=== PATIENT | male | born 1960 | race Hispanic/Latino ===

== ENCOUNTER → 2018-05-02 | Day surgery (SDC) | payer MEDICARE, OTHER ==
[2018-04-30 11:12] LABS: ANION GAP 14.2 mmol/L (8-16); BLOOD UREA NITROGEN 10 mg/dL (7-26); BUN/CREATININE RATIO 14 (6-25); CALCIUM 9.3 mg/dL (8.4-10.2); CARBON DIOXIDE 27 mmol/L (22-29); CHLORIDE 102 mmol/L (98-107); CREATININE, SERUM 0.73 mg/dL (0.72-1.25); EST GLOMERULAR FILTRATION RATE > 60 ML/MIN (60-); GLUCOSE 187 mg/dL (74-118); POTASSIUM 4.2 mmol/L (3.5-5.1); SODIUM 139 mmol/L (136-145)
== END | disposition home or self-care (01) ==
LOC: OR 09:19
PROVIDERS: ATTEND Specialist
DX: S83.281A Other tear of lateral meniscus, current injury, right knee, initial encounter (principal); S83.241A Other tear of medial meniscus, current injury, right knee, initial encounter; Z01.812 Encounter for preprocedural laboratory examination; Z01.810 Encounter for preprocedural cardiovascular examination
CPT/HCPCS: 36415; 80048; 93005

== ENCOUNTER → 2018-05-30 | Day surgery (SDC) | payer MEDICARE, OTHER ==
[2018-05-28 11:44] LABS: ANION GAP 13.5 mmol/L (8-16); BLOOD UREA NITROGEN 13 mg/dL (7-26); BUN/CREATININE RATIO 19 (6-25); CALCIUM 9.1 mg/dL (8.4-10.2); CARBON DIOXIDE 26 mmol/L (22-29); CHLORIDE 104 mmol/L (98-107); EST GLOMERULAR FILTRATION RATE > 60 ML/MIN (60-); GLUCOSE 221 mg/dL (74-118); POTASSIUM 4.5 mmol/L (3.5-5.1); SODIUM 139 mmol/L (136-145)
[~2018-05-30] MED LIST: ATORVASTATIN CA20 MG PO; BUPIVACAINE 0.5%/EPI 30 ML SDV INJ ONE; CEFAZOLIN SOD 2 GM/D5W 50ML 50 ML IV ONE; DEXAMETHASONE SOD PHOS INJ 4 MG/ML VIAL ONE; FENTANYL CITRATE/PF 100MCG/2 ML INJ ONE; GLIMEPIRIDE2 MG PO; LIDOCAINE HCL 2% LOCAL INJ 5 ML SDV VIAL INJ ONE; LISINOPRIL-HCT1 EAC2 PO; METFORMIN HCL500 MG PO; MIDAZOLAM HCL 2 MG/2 ML VIAL ONE; ONDANSETRON HCL INJ 2 MG/ML VIAL ONE; PROPOFOL IV EMULSION 10 MG/ML 20 ML VIAL ONE; SEVOFLURANE INHAL SOLN 250 ML PEN BTL ONE
--- NOTE | 2018-06-02 12:45 | Operative Report ---
DATE OF PROCEDURE: May 30, 2018 PREOPERATIVE DIAGNOSES 1. Right knee medial meniscus tear. 2. Right knee lateral meniscus tear. 3. Right knee degenerative joint disease of the knee. 4. Anterior cruciate ligament tear. POSTOPERATIVE DIAGNOSES 1. Right knee medial meniscus tear. 2. Right knee lateral meniscus tear. 3. Right knee degenerative joint disease of the knee. 4. Anterior cruciate ligament tear. OPERATIONS/PROCEDURES PERFORMED 1. The patient underwent a right knee exam under anesthesia. 2. Right knee arthroscopy. 3. Right knee partial medial meniscectomy. 4. Right knee partial lateral meniscectomy. 5. A resection of an anterior cruciate ligament stump. 6. Chondroplasty of the patella, trochlea, medial femoral condyle, medial tibial plateau, the lateral femoral condyle, and lateral tibial plateau. MAKEUP ARTIST: None. ANESTHESIA: General endotracheal intubation anesthesia. IV FLUIDS: Per the anesthesia record. BRIEF DESCRIPTION OF THE PATIENT'S OPERATIVE PROCEDURE: Mr. Calderon was taken to the operating room and placed in the supine position on the operating room table. Following induction of general anesthesia, as well as endotracheal intubation, the patient's right lower extremity was examined under anesthesia. He was found to have a mild effusion within the knee joint, as well as evidence of anterior translation when examining the anterior cruciate ligament consistent with an ACL tear. The patient's lower extremity was prepped and draped in a standard surgical fashion. A 2-portal technique was used to provide this patient arthroscopic evaluation of the knee joint. Examination of the suprapatellar pouch, medial and lateral gutters found no evidence of loose bodies. 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 The scope was advanced to the medial compartment, and examination of the medial compartment demonstrated a torn medial meniscus. There was also chondromalacia of the articulating surfaces. A combination of biting forceps and motorized shaver were used to resect the torn portion of the meniscus. Chondroplasties of the medial femoral condyle and medial tibial plateau were performed at this time. Scope was then advanced into intercondylar notch and the anterior cruciate ligament was torn. There was a large ACL stump that was interdigitating between the bones. The ACL stump was excised at this time. Scope was advanced in the lateral compartment. There was a torn and macerated lateral meniscus. There was chondromalacia of the articulating surfaces. A combination of biting forceps and a motorized shaver were used to resect the torn portion of the meniscus. Chondroplasties of the lateral femoral condyle and lateral tibial plateau were performed at this time. The scope was then placed in the suprapatellar pouch and chondroplasties of the patella and trochlea were performed. The knee was then deflated of its sterile normal saline. The portal sites were closed. The knee was injected with 0.5% Marcaine with epinephrine. Sterile dressings were applied. The patient was then awakened and taken to the postanesthesia care unit in stable condition. Job#: [id number] CRISTOBAL
--- OUTSIDE RECORDS SUMMARY | 2018-07-19 01:58 | XMS REPORT | Clinical Summary ---
Author Author [facility] Organization [facility] Address Unknown Phone Unavailable Care Team Providers Care Chief Building Inspector Name Role Phone Radha Mckeon MD PCP Allergies No Known Allergies Current Medications Prescription Sig. Disp. Refills Start End Date Status Date blood glucose Use as directed.. 1 Kit 0 12/31/19 Active meterIndications: DM w/o 14 complication type II polyethylene glycol Add lukewarm drinking 4000 mL 0 06/18/20 Active (GOLYTELY) 236-22.74-6.74 water to the fill hannah (4 15 -5.86 gram oral liters) and shake. Drink solutionIndications: as directed by your Colon polyp doctor.. clotrimazole (LOTRIMIN) 1 Apply 1-2 drops to 30 mL 11 06/18/20 Active % external affected nails 2 times a 15 solutionIndications: day. Use a nail file to Onychomycosis keep nails thin. Treatment may take up to 1 year. ibuprofen (MOTRIN) 800 mg Take 1 tablet by mouth 60 tablet 0 12/18/19 Active tabletIndications: Right every 8 hours as needed 16 knee pain, unspecified for Pain. chronicity glimepiride (AMARYL) 2 mg Take 1 tablet by mouth 90 tablet 1 12/18/19 Active tabletIndications: DM every morning (before 16 (diabetes mellitus), type breakfast). 2, uncontrolled lancets 28 2 times weekly 100 Each 3 12/21/19 Active gaugeIndications: DM 16 (diabetes mellitus), type 2, uncontrolled blood glucose test 2 times weekly. 50 Each 3 12/21/19 Active stripsIndications: DM 16 (diabetes mellitus), type 2, uncontrolled metFORMIN (GLUCOPHAGE) Take 1 tablet by mouth 2 180 tablet 1 12/16/19 Active 500 mg tabletIndications: times daily (with meals). 18 Uncontrolled type 2 diabetes mellitus without complication, without long-term current use of insulin, Essential hypertension lisinopril-hydrochlorothi TOME 1 TABLETA POR LA 90 tablet 1 12/16/19 Active azide (PRINZIDE, BOCA CADA MANANA PARA 18 ZESTORETIC) 10-12.5 mg PRESION ARTERIAL O per tabletIndications: (PRESION SANGUINEA).. Essential hypertension polyethylene glycol Add lukewarm drinking 4000 mL 0 12/16/19 Active (GOLYTELY) 236-22.74-6.74 water to the fill hannah (4 18 -5.86 gram oral liters) and shake. Drink solutionIndications: as directed by your Polyp of colon, doctor.. unspecified part of colon, unspecified type lisinopril-hydrochlorothi TOME 1 TABLETA POR LA 90 tablet 1 12/18/19 12/16/19 Discontin azide (PRINZIDE, BOCA CADA MANANA PARA 16 18 ued ZESTORETIC) 10-12.5 mg PRESION ARTERIAL O per tabletIndications: (PRESION SANGUINEA).. Essential hypertension metFORMIN (GLUCOPHAGE) Take 1 tablet by mouth 2 180 tablet 1 12/18/19 12/16/19 Discontin 500 mg tabletIndications: times daily (with meals). 16 18 ued DM (diabetes mellitus), type 2, uncontrolled, Essential hypertension tropicamide (MYDRIACYL) Instill 1 Drop in each 15 mL 0 12/16/1912/05 0.5 % ophthalmic eye once as needed for up 18 18 solutionIndications: to 1 dose (for poor Uncontrolled type 2 retina scan image). diabetes mellitus without complication, without long-term current use of insulin Active Problems Problem Noted Date Glaucoma suspect of both eyes 10/27/2015 Blepharitis of both eyes 10/27/2015 Nuclear sclerotic cataract of both eyes 10/27/2015 Colon polyp- polyp suggestive of adenomatous change in 200906/18/2015 Onychomycosis 06/18/2015 Pain in joint, ankle and foot 05/26/2015 Type II or unspecified type diabetes mellitus without mention of 05/26/2015 complication, not stated as uncontrolled Old complete ACL tear 09/10/2014 Osteoarthrosis of knee 09/10/2014 Knee pain, right 08/04/2014 Fatty liver 03/19/2010 Overview: mild hepatomegaly also oted on U/S of abdomen Essential hypertension, benign 02/11/2010 positive stool guaiac 01/14/2010 Elevated LFTs 01/14/2010 Impaired fasting glucose 01/14/2010 Elevated antinuclear antibody (KISHORE) level Encounters Date Type Specialty Care Team Description 02/06/2018 Telephone Gastroenterology Yusra Rainne 12/22/2017 Orders Only Family Practice Radha Mckeon MD Abnormal eye finding (Primary Dx) 12/19/2017 Lab Appointment Lab Radha Mckeon MD Preventative health care; Uncontrolled type 2 diabetes mellitus without complication, without long-term current use of insulin; Essential hypertension 12/19/2017 Ancillary Radiology Radha Mckeon MD Osteoarthritis of both Procedure knees, unspecified osteoarthritis type 12/19/2017 Ancillary Ophthalmology Radha Mckeon MD Uncontrolled type 2 Procedure diabetes mellitus without complication, without long-term current use of insulin 12/15/2017 Office Visit Family Practice Radha Mckeon MD Osteoarthritis of both knees, unspecified osteoarthritis type (Primary Dx); Uncontrolled type 2 diabetes mellitus without complication, without long-term current use of insulin; Essential hypertension; Preventative health care; Polyp of colon, unspecified part of colon, unspecified type 12/15/2017 Orders Only Family Practice Radha Mckeon MD Polyp of colon , unspecified part of colon, unspecified type; Osteoarthritis of both knees, unspecified osteoarthritis type 12/15/2017 Pharmacy Visit after 05/29/2017 Immunizations Name Dates Previously Given Next Due Influenza <Unspecified> 08/30/2017 Influenza Vaccine 07/24/2014, 09/28/2013, 08/11/2011, 09/17/2010 Influenza Vaccine, 12/15/2017 (Deferred: Patient Refused) Seasonal, Injectable PPV 23 Pneumococcal 10/16/2013 Polysaccaride TDap (Tetanus Toxoid, 12/15/2017 Reduced Diphtheria Toxoid And Acellular Pertussis, Absorbed) Td Tetanus, diphtheria 05/09/2007 Toxoids Vaccine Family History Medical History Relation Name Comments Arthritis Mother Diabetes Mother Heart Mother Relation Name Status Comments Brother Alive x5 Father ? (Age 46) Mother heart (Age 82) Sister Alive Social History Tobacco Use Types Packs/Day Years Used Date Former Smoker Smokeless Tobacco: Never Used Tobacco Cessation: Counseling Given: No Comments: quit in 1984 Alcohol Use Drinks/Week oz/Week Comments Yes 4 Cans of 2.0 drinks once a month beer Sex Assigned at Date Recorded Not on file Last Filed Vital Signs Vital Sign Reading Time Taken Blood Pressure 125/86 12/15/2017 1:48 PM ENVIRONMENTAL SUSTAINABILITY MANAGER Pulse 96 12/15/2017 1:48 PM ENVIRONMENTAL SUSTAINABILITY MANAGER Temperature 37 C (98.6 F) 12/15/2017 1:48 PM ENVIRONMENTAL SUSTAINABILITY MANAGER Respiratory Rate 18 12/15/2017 1:48 PM ENVIRONMENTAL SUSTAINABILITY MANAGER Oxygen Saturation - - Inhaled Oxygen - - Concentration Weight 110 kg (242 lb 9.6 oz) 12/15/2017 1:48 PM ENVIRONMENTAL SUSTAINABILITY MANAGER Height 172.7 cm (5' 8") 12/15/2017 1:48 PM ENVIRONMENTAL SUSTAINABILITY MANAGER Body Mass Index 36.89 12/15/2017 1:48 PM ENVIRONMENTAL SUSTAINABILITY MANAGER Plan of Treatment Health Maintenance Due Date Last Done Comments DM Foot Exam (Yearly) 1976 Colonoscopy 5yr 03/31/2016 03/31/2011 DM HGBA1C (Yearly) 12/19/2018 12/19/2017, 12/29/2015, 05/26/2015, Additional history exists DM Retinal Exam (Yearly) 12/19/2018 12/19/2017, 10/27/2015, 10/27/2015, Additional history exists Procedures Procedure Name Priority Date/Time Associated Diagnosis Comments OPHTHALMOLOGY RETINAL Routine 12/19/2017 Uncontrolled type 2 Results for this SCAN 2:46 PM ENVIRONMENTAL SUSTAINABILITY MANAGER diabetes mellitus without procedure are in the complication, without results section. long-term current use of insulin HIV-1/HIV-2 ROUTINE Routine 12/19/2017 Preventative health care Results for this SCREENING 1:15 PM ENVIRONMENTAL SUSTAINABILITY MANAGER procedure are in the results section. MICROALBUM, URINE Routine 12/19/2017 Uncontrolled type 2 Results for this 1:15 PM ENVIRONMENTAL SUSTAINABILITY MANAGER diabetes mellitus without procedure are in the complication, without results section. long-term current use of insulin HEMOGLOBIN A1C Routine 12/19/2017 Uncontrolled type 2 Results for this 1:15 PM ENVIRONMENTAL SUSTAINABILITY MANAGER diabetes mellitus without procedure are in the complication, without results section. long-term current use of insulin TSH Routine 12/19/2017 Preventative health care Results for this 1:15 PM ENVIRONMENTAL SUSTAINABILITY MANAGER procedure are in the results section. BASIC METABOLIC PANEL Routine 12/19/2017 Uncontrolled type 2 Results for this 1:15 PM ENVIRONMENTAL SUSTAINABILITY MANAGER diabetes mellitus without procedure are in the complication, without results section. long-term current use of insulin Essential hypertension Preventative health care CBC/DIFF Routine 12/19/2017 Preventative health care Results for this 1:15 PM ENVIRONMENTAL SUSTAINABILITY MANAGER procedure are in the results section. LIPID PROFILE Routine 12/19/2017 Preventative health care Results for this 1:15 PM ENVIRONMENTAL SUSTAINABILITY MANAGER procedure are in the results section. LIVER PROFILE Routine 12/19/2017 Preventative health care Results for this 1:15 PM ENVIRONMENTAL SUSTAINABILITY MANAGER procedure are in the results section. after 05/29/2017 Results * OPHTHALMOLOGY RETINAL SCAN (12/19/2017 2:46 PM) RETINAL SCAN-FINAL RESULT NORMAL IRIS Right Diabetic None IRIS Retinopathy Right Macular Edema None IRIS Right Other Suspected Suspected Glaucoma IRIS Conditions Right Image Quality Gradeable Image IRIS Left Diabetic Retinopathy None IRIS Left Macular Edema None IRIS Left Other Suspected Suspected Glaucoma IRIS Conditions Left Image Quality Gradeable Image IRIS Narrative Performed At Retinal Study Result for NIMESH GROVE JOSE, a 57 y/o, M (: 1960, ) presented to [facility] [place] on 12-19-2017 for a retinal imaging study of the left and right eyes. Based on the findings of the study, the following is recommended for NIMESH GROVE Other Suspected Condition Found: Refer to [facility], next available appointment. For Follow-up at [facility]: The patient can be scheduled into any [facility] that has an open booking by calling the appointment center. Interpreting Provider's Comments: No comments provided Right Eye Findings: Negative for Diabetic Retinopathy. Other: Suspected Glaucoma Left Eye Findings: Negative for Diabetic Retinopathy. Other: Suspected Glaucoma This result was electronically signed by James Pugh MD. Taxonomy: [id number] on 12-19-2017 07:46:56 [facility] time. NOTE: Any pathology noted on this diabetic retinal evaluation should be confirmed by an appropriate ophthalmic examination. Performing Organization Address City/State/Zipcode Phone Number IRIS * HIV-1/HIV-2 ROUTINE SCREENING (12/19/2017 1:15 PM) HIV-1/HIV-2 Negative NEG BT OUTPATIENT DRAW 2 Performing Organization Address City/State/Zipcode Phone Number MISYS BT OUTPATIENT DRAW 2 * MICROALBUM, URINE (12/19/2017 1:15 PM) Microalbum, Random 24.8 0.0 - 29.0 mg/dL BT [facility]IN[facility] 3 Creatinine, Ur 185.0 20 - 370 mg/dL BT MAIN[facility]STATION 3 Urine Microalbumin 134.1 (H) 0 - 29 mg/g UCR BT MAIN-STATION 3 Comment: To minimize intra-individual variation, analysis of three random urine samples collected over the course of a week is recommended. Performing Organization Address [facility] Phone Number [facility]YS BT [facility] 3 * HEMOGLOBIN A1C (12/19/2017 1:15 PM) Hemoglobin A1c 11.6 (H) 4.3 - 6.1 % BT DIAGNOSTIC IMMUNOLOGY Est Average Gluc 286.2 mg/dL BT DIAGNOSTIC IMMUNOLOGY Specimen Blood Performing Organization Address [facility] [place] Phone Number MISYS BT DIAGNOSTIC IMMUNOLOGY * TSH (12/19/2017 1:15 PM) TSH 1.40 0.45 - 5.33 uIU/mL BT OUTPATIENT DRAW 2 Specimen Blood Performing Organization Address [facility] [place] Phone Number MISYS BT OUTPATIENT DRAW 2 * LIVER PROFILE (12/19/2017 1:15 PM) T Protein 7.5 6.0 - 8.3 g/dL BT MAIN[facility] 4 Albumin 4.1 (L) 4.2 - 5.5 g/dL BT MAIN-STATION 4 T Bilirubin 1.3 (H) 0.2 - 1.2 mg/dL BT MAIN[facility] 4 Alk Phos 90 34 - 104 U/L BT MAIN-STATION 4 AST 127 (H) 13 - 39 U/L BT MAIN-[facility]ATION 4 ALT 121 (H) 7 - 52 U/L BT MAIN[facility]ATION 4 D Bilirubin 0.3 (H) 0.03 - 0.18 mg/dL BT MAIN-[facility]ATION 4 Specimen Blood Performing Organization Address [facility] [place] Phone Number MISYS BT MAIN[facility]ATION 4 * LIPID PROFILE (12/19/2017 1:15 PM) Cholesterol 181 mg/dL BT MAIN-STATION 4 Comment: REFERENCE RANGE: Desirable: <200 mg/dL Borderline: 200-240 mg/dL High Risk: >240 mg/dL Triglyceride 145 <150 mg/dL BT MAIN-STATION 4 Comment: REFERENCE RANGE: Normal: <150 mg/dL Borderline High: 150-199 mg/dL High: 200-499 mg/dL Very High: >fe=457 mg/dL HDL 47 mg/dL BT MAIN-ST[facility] 4 Comment: Increased CHD risk: <40 mg/dL Decreased CHD risk: >60 mg/dL LDL 105 mg/dL BT MAIN[facility]ATION 4 Comment: REFERENCE RANGE: Optimal: <100 mg/dL Near Optimal: 100-129 mg/dL Borderline High: 130-159 mg/dL High: 160-189 mg/dL Very High: >rt=604 mg/dL Specimen Blood Performing Organization Address City/State/Zipcode Phone Number MISYS BT MAIN[facility]ATION 4 * CBC/DIFF (12/19/2017 1:15 PM) WBC 7.6 4.5 - 12.0 K/uL BT MAIN[facility] 2 RBC 4.93 4.60 - 6.20 M/uL BT MAIN-STATION 2 Hemoglobin 15.6 14.0 - 18.0 g/dL BT MAIN[facility] 2 Hematocrit 47.1 40.0 - 54.0 % BT MAIN-[facility]ATION 2 MCV 96 (H) 82 - 92 fL BT MAIN-[facility]ATION 2 MCH 31.6 (H) 27.0 - 31.0 pg BT MAIN-[facility]ATION 2 MCHC 33.1 32.0 - 36.0 g/dL BT MAIN-[facility]ATION 2 RDW 45.7 (H) 35.1 - 43.9 fL BT MAIN-[facility]ATION 2 Platelet 244 150 - 400 K/uL BT MAIN-STATION 2 Mean Platelet Volume 12.0 9.4 - 12.4 fL BT MAIN-STATION 2 Percent NRBC 0.0 BT MAIN-[facility]ATION 2 Absolute NRBC 0.00 BT MAIN-STATION 2 Neutrophil 46.7 34.0 - 67.9 % BT MAIN-[facility]ATION 2 Lymphocyte 42.9 21.8 - 50.0 % BT MAIN-STATION 2 Monocyte 6.5 5.3 - 12.0 % BT MAIN-STATION 2 Eosinophil 3.0 0.8 - 5.0 % BT MAIN-STATION 2 Basophil 0.8 0.2 - 1.2 % BT MAIN-[facility]ATION 2 Pct Immat Gran 0.1 0.0 - 0.5 BT MAIN-STATION 2 Neutrophil, Abs 3.56 1.78 - 5.36 K/uL BT MAIN-STATION 2 Lymphocyte, Abs 3.28 1.32 - 3.57 K/uL BT MAIN-STATION 2 Monocyte, Abs 0.50 0.30 - 0.82 K/uL BT MAIN-STATION 2 Eosinophil, Abs 0.23 0.04 - 0.54 K/uL BT MAIN-STATION 2 Basophil, Abs 0.06 0.01 - 0.08 K/uL BT MAIN-STATION 2 Absol Immat Gran 0.01 0.00 - 0.03 K/uL BT MAIN-STATION 2 Specimen Blood Performing Organization Address [facility] [place] Phone Number MISYS BT MAIN-STATION 2 * BASIC METABOLIC PANEL (12/19/2017 1:15 PM) CO2 29 21 - 31 mmol/L BT MAIN-STATION 4 Chloride 99 98 - 107 mmol/L BT MAIN-STATION 4 Potassium 4.2 3.5 - 5.1 mmol/L BT MAIN-STATION 4 Sodium 138 136 - 145 mmol/L BT MAIN-STATION 4 Glucose 212 (H) 70 - 110 mg/dL BT MAIN-STATION 4 Urea Nitrogen 8 7 - 25 mg/dL BT MAIN-STATION 4 Creatinine 0.50 (L) 0.7 - 1.3 mg/dL BT MAIN-STATION 4 Anion Gap 10 BT MAIN-STATION 4 Calcium 9.1 8.6 - 10.3 mg/dL BT MAIN-STATION 4 GFR, Estimated >60 mL/min/1.73 m2 BT MAIN-STATION 4 GFR, Estim, Afr-Am >60 mL/min/1.73 m2 BT MAIN-STATION 4 Specimen Blood Performing Organization Address City/[facility] [place] Phone Number MISYS BT MAIN-STATION 4 after 05/29/2017
== END | disposition home or self-care (01) ==
LOC: OR 09:50
PROVIDERS: ATTEND Specialist
DX: S83.271A Complex tear of lateral meniscus, current injury, right knee, initial encounter (principal); S83.221A Peripheral tear of medial meniscus, current injury, right knee, initial encounter; M23.611 Other spontaneous disruption of anterior cruciate ligament of right knee; M17.11 Unilateral primary osteoarthritis, right knee; M22.41 Chondromalacia patellae, right knee; E11.9 Type 2 diabetes mellitus without complications; E78.5 Hyperlipidemia, unspecified; I10 Essential (primary) hypertension; X58.XXXA Exposure to other specified factors, initial encounter; Z01.812 Encounter for preprocedural laboratory examination; Z79.84 Long term (current) use of oral hypoglycemic drugs; Z68.35 Body mass index [BMI] 35.0-35.9, adult; Z87.828 Personal history of other (healed) physical injury and trauma; Z87.891 Personal history of nicotine dependence
CPT/HCPCS: 29880; 29999; 36415 ×2; 80048; 82948; J1100; J2001; J2250; J2405

== ENCOUNTER 2018-07-13 10:54 | Outpatient (RCR) | payer MEDICARE, OTHER ==
[~2018-07-13 10:54] MED LIST changes: -BUPIVACAINE 0.5%/EPI 30 ML SDV INJ ONE; -CEFAZOLIN SOD 2 GM/D5W 50ML 50 ML IV ONE; -DEXAMETHASONE SOD PHOS INJ 4 MG/ML VIAL ONE; -FENTANYL CITRATE/PF 100MCG/2 ML INJ ONE; -LIDOCAINE HCL 2% LOCAL INJ 5 ML SDV VIAL INJ ONE; -MIDAZOLAM HCL 2 MG/2 ML VIAL ONE; -ONDANSETRON HCL INJ 2 MG/ML VIAL ONE; -PROPOFOL IV EMULSION 10 MG/ML 20 ML VIAL ONE; -SEVOFLURANE INHAL SOLN 250 ML PEN BTL ONE
== END 2018-07-15 ==
LOC: PT 10:54
PROVIDERS: ATTEND Specialist
DX: M25.561 Pain in right knee (principal); M25.661 Stiffness of right knee, not elsewhere classified; M62.81 Muscle weakness (generalized); R26.2 Difficulty in walking, not elsewhere classified
CPT/HCPCS: 97110 ×12; 97162; G8978 ×2; G8979 ×2